=== PATIENT | male | born 1975 | race Caucasian/White ===

== ENCOUNTER 2018-12-18 20:33 | Observation (INO) ==
[2018-12-18] MEDS ORDERED: predniSONE 20 MG TABLET PO ONE (20:51)
[2018-12-18] MEDS ORDERED: Ipratropium/Albuterol Neb 3 ML IH ONE (20:51)
--- NOTE | 2018-12-18 20:54 | Emergency Department Note ---
Disposition Clinical Impression: Acute bronchitis Disposition: Admitted As Inpatient Condition: Good [facility] Provider[facility] - Forms: ED Satisfaction Letter Time of Disposition: 22:15 SOB HPI - General Chief Complaint: ED Shortness of Breath/Dyspnea Stated Complaint: sore throat Time Seen by Provider: 12/18/18 20:52 Source: patient Mode of arrival: ambulatory Limitations: no limitations Nursing Notes Reviewed: Yes Vital Signs Reviewed: Yes - History of Present Illness 43-year-old male who presents today from urgent care with cough fever runny nose sore throat and not feeling well for about 3 days. He states he coughs so hard he throws up. He states he is not a smoker. He has a history of hemachromatosis and hypertension. He has not really tried anything for it. They told him down there at urgent care that he come to the emergency room immediately for further workup and evaluation. Pt Subjective Complaint: shortness of breath, cough - Related Data Home Medications Medication Instructions Recorded Confirmed Lisinopril [Zestril] 40 mg PO DAILY 05/17/17 12/18/18 Omeprazole [PriLOSEC] 20 mg PO DAILY 09/11/18 12/18/18 SUMAtriptan succinate [Imitrex] 50 mg PO DAILY PRN 09/11/18 12/18/18 Allergies Allergy/AdvReac Type Severity Reaction Status Date / Time clonazepam [From Klonopin] AdvReac Rash Verified 12/18/18 20:34 ibuprofen AdvReac Rash Verified 12/18/18 20:34 Paroxetine [From Paxil] AdvReac Rash Verified 12/18/18 20:34 Zolpidem [From Ambien] AdvReac Rash Verified 12/18/18 20:34 Review of Systems: All other systems are negative except as noted/marked Chart generated with voice recognition software Nursing notes reviewed Old records reviewed Past Medical History - Past Medical History Attestation: Yes The following information was validated with the patient. Source: patient, old records reviewed, nursing notes reviewed Medical history: Reports: hypertension, other Psychiatric history: Reports: PTSD - Social History Smoking Status: Never smoker Smokeless Tobacco Status: No Alcohol use: Reports: none Drug use: Reports: none Physical Exam - General Limitations: no limitations General appearance: alert - Head Head exam: atraumatic, normocephalic - Eye Eye exam: Present: normal appearance, PERRL, EOMI - ENT ENT exam: normal exam, normal oropharynx, mucous membranes moist - Neck Neck exam: Present: normal inspection, full ROM, trachea midline - Chest Chest inspection: Present: normal inspection, symmetric chest wall rise - Respiratory Respiratory exam: Present: wheezes. Absent: stridor, prolonged expiratory phase - Cardiovascular Cardiovascular exam: Present: regular rate, normal rhythm, normal heart sounds - Abdominal Exam Abdominal exam: Present: soft, Non-Tender, normal bowel sounds. Absent: tenderness, distention, guarding, rebound, rigidity - Extremities Exam Extremities exam: Present: normal inspection, full ROM. Absent: tenderness, ped al edema - Back Exam Back exam: Present: normal inspection, full ROM. Absent: tenderness - Neurological Exam Neurological exam: Present: alert, oriented X3, CN II-XII intact - Psychiatric Psychiatric exam: Present: normal affect, normal mood - Skin Skin exam: Present: warm, dry, intact, normal color Course Vital Signs Temperature 101.0 F H 12/18/18 20:33 Pulse Rate 93 12/18/18 20:33 Respiratory Rate 16 12/18/18 20:33 Blood Pressure 157/100 12/18/18 20:33 O2 Sat by Pulse Oximetry 96 12/18/18 20:33 Temperature 101.0 F H 12/18/18 20:33 Pulse Rate 109 12/18/18 22:11 Respiratory Rate 17 12/18/18 22:11 Blood Pressure 109/66 12/18/18 22:03 O2 Sat by Pulse Oximetry 88 12/18/18 22:11 Oxygen Delivery Oxygen Delivery Room Air Shortness of Breath/Dyspnea - [facility] Narrative Medical decision making narrative: 43-year-old male presents today with a cough fever sore throat runny nose for 2- 3 days. His flu swab was negative chest x-ray shows viral URI but no pneumonia present. His sats of 97-99% on room air. His heart rate is in the 90s and sinus regular. After 1 DuoNeb he still coughing a lot his lung sounds have improved however it is aerating better. We ordered 2 albuterol to go along with that. He got oral prednisone on arrival and some Tylenol for his fever. I do not suspect that he has epiglottitis although apparently urgent care they told the family that they were concerned for this. His voice is normally does not have stridor he is not having any trouble swallowing or breathing. He has a persisting cough which is irritating to the patient but is not consistent with epiglottitis. 2149: patient is still coughing. Aftter two more breathing treatments. Given Robutussin DM. Patient tachycardic after the albuterols. 2214: patient resting, and desatted to 88% on RA. placed on oxygen, line started, mag started, and ivf givne, spoke with Dr Hammond who agreed to keep patient overnight for treatment - Medical Records Medical records reviewed: Yes I reviewed the patient's medical records. - Radiology Data Radiology results reviewed: Yes I reviewed the patient's radiology results. EXAMINATION: TWO VIEWS OF THE CHEST 12/18/2018 9:03 pm COMPARISON: None. HISTORY: ORDERING SYSTEM PROVIDED HISTORY: cough, fever FINDINGS: The heart and mediastinum are normal. Minimal perihilar opacities centrally. The lungs are otherwise clear. No skeletal abnormalities. XR/XR chest 2V IMPRESSION: Minimal perihilar opacities may represent asthma or a viral infection. D/ / Basil Cleveland MD / Basil Cleveland MD Interpreting Provider: Basil Cleveland MD
[2018-12-18] MEDS ORDERED: Albuterol 2.5 MG/3 ML NEBULIZER IH ONE (21:18)
[2018-12-18] MEDS ORDERED: 0.9 % Sodium Chloride 1,000 ML IVC ONE (22:13)
[2018-12-18] MEDS ORDERED: Mag Hydrox/Al Hydrox/Simeth 30 ML UDC PO PRN (23:20)
[2018-12-18] MEDS ORDERED: Ondansetron 4 MG/2 ML VIAL IVP PRN (23:20)
[2018-12-18] MEDS ORDERED: SUMAtriptan succinate 50 MG TABLET PO PRN (23:20)
[2018-12-18] MEDS ORDERED: 0.9 % Sodium Chloride 1,000 ML IVC SCH (23:20)
[2018-12-18] MEDS ORDERED: MOM Conc 10 ML UD.LIQ PO PRN (23:20)
[2018-12-18] MEDS ORDERED: Naloxone 0.4 MG/ML INJ IVP PRN (23:20)
[2018-12-18] MEDS ORDERED: Albuterol 2.5 MG/3 ML NEBULIZER IH PRN (23:20)
[2018-12-18] MEDS ORDERED: *HR* HYDROcodone/Acet 5/325 mg TABLET PO PRN (23:20)
[2018-12-19] MEDS: Ipratropium/Albuterol Neb 3 ML IH PRN ×2 (02:18→08:38)
[2018-12-19 06:46] LABS: Basophils % 0.1 %; Hematocrit 43.6 % (37.5-50.1); Hemoglobin 14.9 g/dL (12.9-16.9); Immature Granulocytes % 0.3 % (0-4); Lymphocytes # 0.8 K/mcL (0.6-4.6); Lymphocytes % 10.7 %; Mean Corpuscular HGB Conc 34.2 g/dL (31.6-35.5); Mean Corpuscular Hemoglobin 27.4 pg (28.0-33.3); Mean Corpuscular Volume 80.1 fL (83.0-100.0); Mean Platelet Volume 10.1 fL (9.4-12.4); Monocytes # 0.2 K/mcL (0.0-1.3); Monocytes % 3.3 %; Neutrophils # 6.3 K/mcL (1.6-8.9); Platelet Count 225 K/mcL (140-400); Red Blood Count 5.44 M/mcL (4.19-5.50); Red Cell Distribution Width 12.9 % (11.5-14.5); Segmented Neutrophils % 85.6 %
[2018-12-19 07:07] LABS: BUN/Creatinine Ratio 14 (6-26); Blood Urea Nitrogen 16 mg/dL (6-20); Calcium 9.1 mg/dL (8.6-10.3); Carbon Dioxide 22 mEq/L (23-29); Chloride 107 mEq/L (98-107); Glucose 170 mg/dL (70-105); Magnesium 2.1 mg/dL (1.6-2.6); Osmolality,Calculated 289 (280-300); Potassium 4.4 mEq/L (3.5-5.1); Sodium 137 mEq/L (136-145); eGFR For Non-African Americans > 60 (> 60)
[2018-12-19 08:25] VITALS: BP 132/86
[2018-12-19] MEDS ORDERED: Lisinopril 20 MG TABLET PO SCH (09:00)
--- NOTE | 2018-12-19 11:15 | Internal Med History&Physical ---
Date of Encounter: 12/19/18 Time of Encounter: 10:50 Assessment and Plan (1) Acute bronchitis Current visit: Yes Status: Acute Likely viral etiology. Antibiotics will not be given at this time. He will be started on Tessalon and Symbicort for symptomatic relief. 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 Hill is a 43 year old male who came to emergency room stating he had onset of nonproductive cough approximately one week ago. He tried numerous OTC interventions without relief. On the day of admission he went to [facility] emergency in [place] but found it closed. He went to a [place] urgent care where he was directed to emergency room. He was evaluated and found to have fever 101. He was admitted to [facility] floor for ongoing care needs. He states he feels slightly improved at the present time. He denies any hemopty sis. Respiratory history is significant for being a lifelong nonsmoker and having no known chronic lung disease. He denies contacts with similar symptoms. Past Med Surg Social Fam HX - Past Medical History Medical history: hypertension, other Additional medical history: PTSD. Hemochromotsis Psychiatric history: PTSD - Past Surgical History Surgical History: no surgical history - Social History Smoking Status: Never smoker Smokeless Tobacco Status: No Alcohol use: none Drug use: none Internal Medicine - H&P: Meds Lisinopril [Zestril] 40 mg PO DAILY 05/17/17 [History] Omeprazole [PriLOSEC] 20 mg PO DAILY 09/11/18 [History] SUMAtriptan succinate [Imitrex] 50 mg PO DAILY PRN 09/11/18 [History] Allergy/AdvReac Type Severity Reaction Status Date / Time clonazepam [From Klonopin] AdvReac Rash Verified 12/18/18 20:34 ibuprofen AdvReac Rash Verified 12/18/18 20:34 Paroxetine [From Paxil] AdvReac Rash Verified 12/18/18 20:34 Zolpidem [From Ambien] AdvReac Rash Verified 12/18/18 20:34 All Systems PM: A 10-system review of systems was performed and is negative for pertinent findings except as documented above in the HPI. Review of systems: Gen.: He states his weight has been stable. Cardiovascular: He has history of hypertension but denies IN heart failure angina DVT or pulmonary embolus. He states he has used lisinopril for several years without cough. Respiratory: As per history of present illness GI: He has GERD and uses Prilosec with adequate control. He denies disorders of his liver gallbladder or exocrine pancreas : He denies hematuria dysuria or kidney stones Neurologic: He has occasional migraine headaches. He denies large distribution strokes or seizures. Endocrine: He denies diabetes thyroid disease or hyperlipidemia Hematology/oncology: He has a diagnosis of hemachromatosis and follows with a control clerk at [facility]. He denies internal malignancies or other blood disorders. Psychiatric: He has a diagnosis of PTSD. He denies other mental health [facility]. [place] skeletal: He denies arthritis gout or other bone joint or muscle disorders. - Constitutional Vitals: Temp Pulse Resp BP Pulse Ox 98.4 F 96 16 132/86 96 12/19/18 08:00 12/19/18 08:00 12/19/18 08:38 12/19/18 08:00 12/19/18 08:38 Exam: Gen.: He is a well-developed well-nourished male sitting on the side of bed who coughs frequently during the examination HEENT: Head is atraumatic and normocephalic. Eyes: EOMI. There is no scleral icterus. Mouth: Mucosa is moist. Neck: Supple and nontender. There is no thyromegaly or adenopathy noted. Heart: Regular without murmurs gallops or ectopics Lungs: No wheezes crackles or egophony are heard. Breath sounds are symmetric. Abdomen: Soft and nontender. No masses or guarding are noted. Extremities: There is no cyanosis edema or clubbing noted. Dorsalis pedis and posterior tibial pulses are 1-2 over 2 bilaterally. Neurologic: Mental status: He is talkative and a good historian. Cranial nerves: Smile is symmetric. Forehead wrinkles bilaterally. Tongue protrudes midline. EOMI. Motor: There is no pronator drift. Cerebellar: Finger to nose is intact bilaterally. Skin: Warm and dry Internal Med - H&P Results - Labs CBC & Chem 7: 12/19/18 06:36 12/19/18 06:36 Labs: Short CBC 12/19/18 Range/Units 06:36 WBC 7.3 (4.3-11.1) K/mcL Hgb 14.9 (12.9-16.9) g/dL Hct 43.6 (37.5-50.1) % Plt Count 225 (140-400) K/mcL Neutrophils # 6.3 (1.6-8.9) K/mcL BMP 12/19/18 06:36 Sodium 137 Potassium 4.4 Chloride 107 Carbon Dioxide 22 L BUN 16 Creatinine 1.12 Glucose 170 H Calcium 9.1 - Impressions ITS Impressions Chest X-Ray 12/18/18 20:51 IMPRESSION: Minimal perihilar opacities may represent asthma or a viral infection. D/ / Basil Cleveland MD / Basil Cleveland MD Interpreting Provider: Basil Cleveland MD
[2018-12-19] MEDS ORDERED: Benzonatate 100 MG CAPSULE PO ONE (11:24)
--- NOTE | 2018-12-19 11:29 | Discharge Summary ---
Date of Encounter: 12/19/18 Time of Encounter: 10:50 - Discharge Diagnosis (1) Acute bronchitis Priority: Primary Status: Acute Qualifiers: Bronchitis organism: unspecified organism Qualified Code(s): J20.9 - Acute bronchitis, unspecified (2) Hypertension Priority: Secondary Status: Chronic Qualifiers: Hypertension type: essential hypertension Qualified Code(s): I10 - Essential (primary) hypertension (3) Hemochromatosis Priority: Secondary Status: Chronic Qualifiers: Hemochromatosis type: hereditary Qualified Code(s): E83.110 - Hereditary hemochromatosis Hospital course: Mr. Hill is a 43 year old male who came to emergency room stating he had onset of nonproductive cough approximately one week ago. He tried numerous OTC interventions without relief. On the day of admission he went to [facility] emergency in [place] but found it closed. He went to a [place] urgent care where he was directed to emergency room. He was evaluated and found to have fever 101. He was admitted to [facility] floor for ongoing care needs. Initial orders were written by the emergency room physician. I saw him on and performed a history physical and discharge. He was started on Tessalon and Symbicort for nonproductive cough. He remained afebrile after arriving on Med[facility]urg floor. When I saw him he felt stable for discharge home. He will follow with his PCP at [facility] within 1 week. - Time Spent with Patient Total time spent providing and/or coordinating discharge services: - Discharge Medications Prescriptions: Benzonatate [Tessalon] 100 mg PO TID #15 capsule Budesonide/Formoterol 160/4.5 [Symbicort 160/4.5] 2 puff IH BIDR #1 hfa.aer.ad Home Medications: Lisinopril [Zestril] 40 mg PO DAILY 05/17/17 [History] Omeprazole [PriLOSEC] 20 mg PO DAILY 09/11/18 [History] SUMAtriptan succinate [Imitrex] 50 mg PO DAILY PRN 09/11/18 [History] Benzonatate [Tessalon] 100 mg PO TID #15 capsule 12/19/18 [Rx] Budesonide/Formoterol 160/4.5 [Symbicort 160/4.5] 2 puff IH BIDR #1 hfa.aer.ad 12/19/18 [Rx] Allergies/Adverse Reactions: Allergy/AdvReac Type Severity Reaction Status Date / Time clonazepam [From Klonopin] AdvReac Rash Verified 12/18/18 20:34 ibuprofen AdvReac Rash Verified 12/18/18 20:34 Paroxetine [From Paxil] AdvReac Rash Verified 12/18/18 20:34 Zolpidem [From Ambien] AdvReac Rash Verified 12/18/18 20:34 Date of admission: 12/18/18 22:30 [facility] - Constitutional Vitals: Temp Pulse Resp BP Pulse Ox 98.4 F 96 16 132/86 96 12/19/18 08:00 12/19/18 08:00 12/19/18 08:38 12/19/18 08:00 12/19/18 08:38 - Patient Status Disposition: Home, Self-Care Condition: Good - Discharge Instructions Follow Up With: [facility] Care Provider[facility] - 1 week - Diet and Activity Activity: resume usual activities as tolerated Diet: advance to your usual diet
[2018-12-19] MEDS ORDERED: Budesonide/Formoterol 160/4.5 1 PUFF INH IH SCH (11:30)
== END 2018-12-19 13:09 | disposition home or self-care (01) ==
LOC: INPPIK 20:33 → EMEROOPIK 20:33 → INPPIK 23:11
PROVIDERS: ADMIT Internal Medicine; ATTEND Internal Medicine